=== PATIENT | female | born 1990 | race Caucasian/White ===

== ENCOUNTER 2016-05-31 15:10 | Emergency (ER) | payer OTHER ==
[2016-05-31 15:17] VITALS: BP 126/74; PULSE 76; RESP 22; TEMP 98.1; O2SAT 100
--- NOTE | 2016-05-31 16:21 | EDPHY ---
H & P Stated Complaint: migraine last monday with r neck pain burning into r hand and leg Time Seen by Provider: 05/31/16 15:52 HPI/ROS: Chief Complaint: Headache, neck pain HPI: 26-year-old female presenting with 1 week of a migraine headache with right neck pain going into her right back. Patient has been taking ibuprofen without any relief. Does have a history of migraine headaches and states this feels like her migraines, however she has never been diagnosed with migraines. She is never taken migraine medications in the past. States she gets a headache about every 4 months. She also has a history of chronic pain in her right hand for the last 2 years with some swelling which her primary care physician attributed to overuse. Denies any new numbness. Is not dropping things. No new weakness. States the bright light does bother her eyes. She has been out of work for the last 3 days because of her discomfort. Describes tightness in her neck going up to the right side. When I prompted she does agree that it feels like a hat that is too tight. No nausea or vomiting. Is concerned about taking ibuprofen because a interactions with lithium ROS: 10 point Review of Systems is negative except as noted in the HPI. PMH: Bipolar disorder, migraine headaches Social History: No smoking, occasional alcohol, occasional marijuana Family History: non-contributory Physical Exam: Gen: Awake, Alert, No Distress HEENT: Nose: no rhinorrhea Eyes: PERRLA, EOMI Mouth: Moist mucosa Neck: Supple, no JVD, mild right trapezius tenderness reproducing presenting complaint, no meningismus Chest: nontender, lungs clear to auscultation Heart: S1, S2 normal, no murmur Abd: Soft, non-tender, no guarding Back: no CVA tenderness, no midline tenderness Ext: no edema, non-tender Skin: no rash Neuro: CN II-XII intact, Sensation grossly intact, Strength 5/5 in bilateral upper and lower extremities - Personal History LMP (Females 10-55): 15-21 Days Ago Current Tetanus/Diphtheria Vaccine: Yes - Medical/Surgical History Hx Asthma: No Hx Chronic Respiratory Disease: No Hx Diabetes: No Hx Cardiac Disease: No Hx Renal Disease: No Hx Cirrhosis: No Hx Alcoholism: No Hx HIV/AIDS: No Hx Splenectomy or Spleen Trauma: No Other PMH: BIPOLAR - Social History Smoking Status: Never smoked Constitutional: Initial Vital Signs Temperature (C) 36.7 C 05/31/16 15:14 Heart Rate 76 05/31/16 15:14 Respiratory Rate 22 H 05/31/16 15:14 Blood Pressure 126/74 H 05/31/16 15:14 O2 Sat (%) 100 05/31/16 15:14 O2 Delivery Mode Room Air Allergies/Adverse Reactions: cefixime [From Suprax] Allergy (Verified 05/31/16 15:13) Home Medications: Medication Instructions Recorded [place] Carbonate 1,500 mg PO HS 10/03/10 Levothyroxine 05/31/16 MIRENA 05/31/16 Promethazine HCl [Phenergan 12.5mg 12.5 mg PO Q6 PRN #10 tablet 05/31/16 tab] Medical Decision Making ED Course/Re-evaluation: 26-year-old presenting with tension-type headache. Admits anything suggesting acute neurologic process at this time. She is benign exam with no meningismus. She has no torticollis and has no no muscle spasm. She is neurologically intact and her strength is intact. I have suggested she as some Phenergan on as an anti emetic to assist with migraine headaches as well. She does not want any medications here she is driving. She can alternate ibuprofen with acetaminophen. I have also suggested ice. She has appointment to follow up with a new primary care physician next Monday. She will follow up as planned. Will return for any worsening. Departure - Departure Disposition: Home, Routine, Self-Care Clinical Impression: Headache Condition: Good Instructions: Tension Headache (ED) Additional Instructions: You may take Phenergan for your headache in addition to ibuprofen and acetaminophen. Apply ice for 15 minutes of every hour while awake. Follow up with your primary care physician next week as scheduled. Referrals: Bella Walton MD [Primary Care Provider] - As per Instructions Prescriptions: Promethazine HCl [Phenergan 12.5mg tab] 12.5 mg PO Q6 PRN #10 tablet PRN Reason: Headache
== END 2016-05-31 16:41 | disposition home or self-care (01) ==
DX: R51 Headache (principal)

== ENCOUNTER 2016-06-27 19:30 | Emergency (ER) | payer OTHER ==
[2016-06-27 19:42] VITALS: RESP 18; TEMP 98.4
--- NOTE | 2016-06-27 19:51 | EDPHY ---
H & P Smoking Status: Never smoked Time Seen by Provider: 06/27/16 19:50 HPI/ROS: CHIEF COMPLAINT: Dog bite left forearm HISTORY OF PRESENT ILLNESS: 26-year-old female with up-to-date tetanus was breaking up a dog fight and sustained puncture wounds to her forearm on the left. She is complaining of paresthesia distally. No wrist drop. Occurred shortly prior to arrival. States that the animals involved or up-to-date with vaccinations PHYSICAL EXAM (Prior to examination, patient consented to physical exam, hands were washed and my usual and customary physical exam procedures followed) 1) GENERAL: Well-developed, well-nourished, alert and oriented. Appears to be in no acute distress. 2) HEAD: Normocephalic 3) HEENT: sclera anicteric 4) LUNGS: Breathing comfortably. 5) SKIN: puncture wounds to the forearm 6) MUSCULOSKELETAL: left forearm ulnar and volar aspect of the proximal forearm to discrete puncture wounds each measuring 1 cm. No palpable or visible foreign bodies. No signs of infection. 7) NEUROLOGIC: Distal radial ulnar median nerve function intact. (Elaine Bautista Louise) Constitutional: Initial Vital Signs Temperature (C) 36.9 C 06/27/16 19:40 Heart Rate 112 H 06/27/16 19:40 Respiratory Rate 18 06/27/16 19:40 Blood Pressure 161/88 H 06/27/16 19:40 O2 Sat (%) 97 06/27/16 19:40 O2 Delivery Mode Room Air Allergies/Adverse Reactions: cefixime [From Suprax] Allergy (Verified 06/27/16 19:42) Home Medications: Medication Instructions Recorded [place] Carbonate 1,500 mg PO HS 10/03/10 Levothyroxine 05/31/16 MIRENA 05/31/16 Promethazine HCl [Phenergan 12.5mg 12.5 mg PO Q6 PRN #10 tablet 05/31/16 tab] Doxycycline Hyclate 100 mg PO BID #14 capsule 06/27/16 metroNIDAZOLE [Flagyl 500 mg (*)] 500 mg PO TID 7 Days 06/27/16 MDM/Departure - [facility] ED Course/Re-evaluation: Patient's wounds were anesthetized with 1% lidocaine with epinephrine and copiously irrigated by ER staff. She is complaining of paresthesia distally with no neuro deficits on examination. She is cephalosporin allergic and and notes that she may have mononucleosis and withdrawal like to avoid penicillin containing agents. She is started on dual therapy of doxycycline and Flagyl for infection prophylaxis. I have also given her the name of on-call hand surgery Dr. Thony Hagan for further evaluation of her paresthesias. (Elaine Bautista) I did not see this patient while she was in the emergency department. However her care was discussed with PA while the patient was in the department. I agree with treatment plan and management (Howard Albarado) - Depart Disposition: Home, Routine, Self-Care Clinical Impression: Dog bite of left forearm Qualifiers: Encounter type: initial encounter Qualified Code(s): S51.852A - Open bite of left forearm, initial encounter Condition: Good Instructions: Animal Bite (ED) Additional Instructions: Return to the ER if you develop redness, swelling, discharge, warmth to the wound, red streaks going up your arm , or any other symptoms that concern you. Prescriptions: Doxycycline Hyclate 100 mg PO BID #14 capsule metroNIDAZOLE [Flagyl 500 mg (*)] 500 mg PO TID 7 Days Referrals: Thony Hagan MD [Medical Doctor] - 2-3 days, call for appt. (Dr. Thony Hagan is a hand surgeon)
[2016-06-27 21:00] VITALS: BP 145/71; PULSE 87; O2SAT 96
== END 2016-06-27 21:00 | disposition home or self-care (01) ==
DX: S51.852A Open bite of left forearm, initial encounter (principal); W54.0XXA Bitten by dog, initial encounter; Y99.8 Other external cause status

== ENCOUNTER 2016-07-10 17:36 | Emergency (ER) | payer OTHER ==
[2016-07-10 17:44] VITALS: BP 122/85; PULSE 74; RESP 20; TEMP 97.9; O2SAT 100
== END 2016-07-10 18:58 | disposition left against medical advice (07) ==
DX: Z53.21 Procedure and treatment not carried out due to patient leaving prior to being seen by health care provider (principal)